=== PATIENT | female | born 1955 | race Caucasian/White ===

== ENCOUNTER 2019-09-06 22:20 | Emergency (ER) | payer SELFPAY ==
[2019-09-06] MEDS ORDERED: MORPHINE SULFATE 10 MG/ML INJ IV ONE (23:53)
[2019-09-06] MEDS ORDERED: ONDANSETRON HCL INJ/PF 4 MG/2 ML SDV IV ONE (23:53)
[2019-09-06] MEDS ORDERED: NORMAL SALINE 1000 ML 1,000 ML IV ONE (23:53)
--- NOTE | 2019-09-06 23:57 | ER Document Report ---
ED General - General Chief Complaint: Abdominal Pain Stated Complaint: ABDOMINAL PAIN Time Seen by Provider: 09/06/19 23:43 - HPI Notes: Patient is a 64-year-old female who presents emergency department for abdominal pain. She states around 7 PM she had a snack of blue cheese crumbles, cranberries, almonds, walnuts. Approximately 20 minutes later she started with severe abdominal pain. It sharp and cramping. Is across her lower abdomen. She has had multiple episodes of watery diarrhea. She has had nausea but no emesis. She denies any urinary symptoms, but states regarding her urine sample that her "urine has never looked like that." Otherwise she has been taking her medications as prescribed, no abnormal travel. She was just on amoxicillin, 500mg three times daily for 2 weeks. Last dose was 5 days ago. - Related Data Allergies/Adverse Reactions: Sulfa (Sulfonamide Antibiotics) Allergy (Verified 09/06/19 23:05) Home Medications: Benazepril, amlodipine, prednisone, Pepcid Past Medical History - General Information source: Patient - Social History Smoking Status: Never Smoker Family History: Reviewed & Not Pertinent Patient has suicidal ideation: No Patient has homicidal ideation: No - Past Medical History Cardiac Medical History: Reports: Hx Hypertension GI Medical History: Reports: Hx Gastroesophageal Reflux Disease Musculoskeletal Medical History: Reports Hx Arthritis - Rheumatoid arthritis Review of Systems - Review of Systems Gastrointestinal: See HPI -: Yes All other systems reviewed and negative Physical Exam - Vital signs Vitals: Temp Pulse Resp BP Pulse Ox 97.9 F 103 H 19 129/77 H 100 09/06/19 22:53 09/06/19 22:53 09/06/19 22:53 09/06/19 22:53 09/06/19 22:53 - Notes Notes: Vital signs reviewed, please refer to chart. Head is normocephalic, atraumatic. Pupils equal round, reactive to light. Neck is supple without meningismus. Heart is regular rate and rhythm. Lungs are clear to auscultation bilaterally. Abdomen is soft, mildly tender in the right lower and left lower quadrants without rebound or guarding, normoactive bowel sounds throughout. Extremities without cyanosis, clubbing. Posterior calves are nontender. Peripheral pulses are equal. Skin is warm and dry. Patient is awake, alert, neurological exam is nonfocal. Course - Re-evaluation Re-evalutation: 09/06/19 23:56 Patient presents emergency department for evaluation. She laboratory investigations as ordered per protocol. She is given IV fluids, medications for symptoms. She has had lower abdominal cramping and diarrhea for only a short amount of time. Her abdominal exam is tender but nonsurgical. We will continue to monitor. 09/07/19 02:15 Patient has not had any further diarrhea since being back in the room. We talked about the possibility of C. difficile colitis. She has a mildly elevated white blood cell count, but I suspect this is secondary to her chronic prednisone therapy. She is several days out from her antibiotic, and it was only amoxicillin that she took. She may have some antibiotic associated diarrhea, but I do not have a very high suspicion for C. difficile colitis at this time. I explained this to the patient. I encouraged her to start probiotic therapy, whether yogurt or [id number] supplements. She was amenable to this. She understands that if she develops fever or her diarrhea continues she needs further testing. Otherwise she is to follow-up with primary care this week, return to the ER with worsening or new concerning symptoms of any sort. - Vital Signs Vital signs: Temp Pulse Resp BP Pulse Ox 97.9 F 103 H 19 129/77 H 100 09/06/19 22:53 09/06/19 22:53 09/06/19 22:53 09/06/19 22:53 09/06/19 22:53 - Laboratory Result Diagrams: 09/07/19 01:20 09/07/19 01:20 Laboratory results interpreted by me: 09/06/19 09/07/19 09/07/19 23:45 01:20 01:20 WBC 14.9 H RDW 15.3 H Lymph % (Auto) 9.3 L Absolute Neuts (auto) 12.5 H Seg Neutrophils % 83.7 H Sodium 136.6 L Urine Protein 30 H Urine Blood SMALL H Ur Leukocyte Esterase TRACE H Discharge - Discharge Clinical Impression: Lower abdominal pain Diarrhea Qualifiers: Diarrhea type: unspecified type Qualified Code(s): R19.7 - Diarrhea, u nspecified Condition: Stable Disposition: HOME, SELF-CARE Instructions: Abdominal Pain ([facility]), Diarrhea, Nonspecific ([facility]) Additional Instructions: Because of your recent antibiotic, I would be concerned that you have risk factors for a condition called C. difficile colitis. Antibiotics themselves can cause diarrhea. At this point, my suggestion is the addition of probiotics, such as yogurt, [id number] supplements, to replenish the good bacteria in your colon. If your pain persists, if you develop worsening diarrhea, fevers, vomiting, or any other new or concerning symptoms, you should return immediately to the ER for further evaluation. Otherwise, follow-up with your primary care provider on Sunday.
[2019-09-07] LABS: APPEARANCE,URINE SLIGHTLY-CLOUDY; BILIRUBIN,URINE NEGATIVE (NEGATIVE); GLUCOSE, URINE NEGATIVE (NEGATIVE); KETONES,URINE NEGATIVE (NEGATIVE); LEUKOCYTE ESTERASE,URINE TRACE (NEGATIVE); NITRITE,URINE NEGATIVE (NEGATIVE); PROTEIN,URINE 30 mg/dL (NEGATIVE); URINE SPECIFIC GRAVITY 1.013; UROBILINOGEN,URINE NEGATIVE mg/dL (<2.0)
[2019-09-07 00:01] LABS: COLOR,URINE DARK YELLOW
[2019-09-07 01:39] LABS: ABSOLUTE LYMPHOCYTES (AUTO) 1.4 10^3/uL (0.5-4.7); ABSOLUTE NEUT (AUTO) 12.5 10^3/uL (1.7-8.2); BASOPHILS % (AUTO) 0.3 % (0-2); EOSINOPHILS % (AUTO) 0.2 % (0-6); HEMATOCRIT 42.7 % (36.0-47.0); HEMOGLOBIN 14.6 g/dL (12.0-15.5); LYMPHOCYTES % (AUTO) 9.3 % (13-45); MEAN CORPUSCULAR HEMOGLOBIN 28.8 pg (27.0-33.4); MEAN CORPUSCULAR HGB CONC 34.1 g/dL (32.0-36.0); MEAN CORPUSCULAR VOLUME 85 fl (80-97); MONOCYTES % (AUTO) 6.5 % (3-13); PLATELET COUNT 274 10^3/uL (150-450); RED BLOOD COUNT 5.05 10^6/uL (3.72-5.28); RED CELL DISTRIBUTION WIDTH 15.3 % (11.5-14.0); SEGMENTED NEUTROPHILS % (AUTO) 83.7 % (42-78); TOTAL CELLS COUNTED % (AUTO) 100 %; WHITE BLOOD COUNT 14.9 10^3/uL (4.0-10.5)
[2019-09-07 01:51] LABS: ALKALINE PHOSPHATASE 79 U/L (38-126); ANION GAP 8 (5-19); ASPARTATE AMINO TRANSFERASE 17 U/L (14-36); BILIRUBIN,DIRECT 0.2 mg/dL (0.0-0.4); BILIRUBIN,TOTAL 0.4 mg/dL (0.2-1.3); BLOOD UREA NITROGEN 11 mg/dL (7-20); CARBON DIOXIDE 24 mmol/L (22-30); CHLORIDE 105 mmol/L (98-107); GLUCOSE 106 mg/dL (75-110); POTASSIUM 3.8 mmol/L (3.6-5.0)
[2019-09-07 02:57] VITALS: BP 152/85
== END 2019-09-07 03:19 | disposition home or self-care (01) ==
LOC: ER 22:20
DX: R10.30 Lower abdominal pain, unspecified (principal); R10.813 Right lower quadrant abdominal tenderness; R10.814 Left lower quadrant abdominal tenderness; R19.7 Diarrhea, unspecified; R11.0 Nausea; D72.829 Elevated white blood cell count, unspecified; K21.9 Gastro-esophageal reflux disease without esophagitis; I10 Essential (primary) hypertension; Z79.899 Other long term (current) drug therapy; Z79.52 Long term (current) use of systemic steroids; Z88.2 Allergy status to sulfonamides
CPT/HCPCS: 99284; 96361; 96374; 96375; 36415; 83690; 85025; 80053; 81001; J2270; J2405; J7030